=== PATIENT | male | born 1995 | race Caucasian/White ===

== ENCOUNTER 2017-07-08 18:44 | Emergency (ER) | payer OTHER ==
[2017-07-08 19:22] VITALS: BP 137/80; PULSE 73; RESP 18; TEMP 98
--- NOTE | 2017-07-08 19:30 | ED ---
General Adult HPI - General Chief complaint: Extremity Injury, Lower Stated complaint: Ankle Injury Time Seen by Provider: 07/08/17 19:17 Source: patient, family, RN notes reviewed Mode of arrival: ambulatory - History of Present Illness Initial comments: 21-year-old male presents emergency Department chief complaint of right ankle injury. Patient states that he is playing basketball today and he rolled his right ankle. pain along the lateral aspect. Patient is able to ambulate with difficulty. Patient denies fever chills cough cold Raynaud's. Patient denies any other injury from the incident. Patient was concerned due to his knee pain and swelling to be evaluated. Patient denies any recent fever, chills, shortness of breath, chest pain, back pain, abdominal pain, nausea vomiting, numbness or tingling, dysuria or hematuria, constipation or diarrhea, headaches or visual changes, or any other current symptoms. - Related Data Home Medications Medication Instructions Recorded Confirmed Lisdexamfetamine Dimesylate 50 mg PO QAM 07/08/17 07/08/17 [Vyvanse] Loratadine [Claritin] 10 mg PO DAILY 07/08/17 07/08/17 Montelukast Sodium [Singulair] 10 mg PO DAILY 07/08/17 07/08/17 Allergies Allergy/AdvReac Type Severity Reaction Status Date / Time No Known Allergies Allergy Verified 07/08/17 19:25 Review of Systems ROS Statement: Those systems with pertinent positive or pertinent negative responses have been documented in the HPI. ROS Other: All systems not noted in ROS Statement are negative. Past Medical History Past Medical History: No Reported History History of Any Multi-Drug Resistant Organisms: None Reported Past Surgical History: No Surgical Hx Reported Past Psychological History: No Psychological Hx Reported Smoking Status: Never smoker Past Alcohol Use History: None Reported Past Drug Use History: None Reported General Exam - General Exam Comments Initial Comments: General: The patient is awake and alert, in no distress, and does not appear acutely ill. Neck: The neck is supple, there is no tenderness. Cardiovascular: There is a regular rate and rhythm. No murmur, rub or gallop is appreciated. Respiratory: Lungs are clear to auscultation, respirations are non-labored, breath sounds are equal. No wheezes, stridor, rales, or rhonchi. Musculoskeletal: Patient tachycardia 2+ pulses. X-ray. Full range of motion of right knee and right ankle with no proximal tib-fib tenderness. Patient is going over the lateral malleolus and pain to the base of the lateral malleolus. Patient does have full range of motion. Patient is able to ambulate here in the emergency department. Neurological: CN II-XII intact, There are no obvious motor or sensory deficits. Coordination appears grossly intact. Speech is normal. Skin: Skin is warm and dry and no rashes or lesions are noted. Psychiatric: Normal mood and affect. Course Vital Signs 07/08/17 19:18 Temperature 98 F Pulse Rate 73 Respiratory 18 Rate Blood Pressure 137/80 O2 Sat by Pulse 100 Oximetry Procedures - Orthopedic Splinting/Casting Injury #1 Side: right Lower Extremity Injury Location: ankle Lower Extremity Immobilizer: Cam wrap Medical Decision Making - Medical Decision Making 21-year-old male presents for right ankle injury. This time patient appears her right ankle sprain. This time x-rays reviewed. We discussed care follow- up return parameters all patient's questions. He stated he understood any significant plan. All questions answered. He will be discharged. - Radiology Data Radiology results: image reviewed Interpreted by me: Interpreted by me: Right ankle xray: 3 view, no fracture, no dislocation, no bony lesions, no foreign bodies, no soft tissue damage. Waiting official radiology read. Disposition Clinical Impression: Right ankle sprain Disposition: HOME SELF-CARE Condition: Stable Instructions: Ankle Sprain (ED) Additional Instructions: Please use medication as discussed. Please follow up with family doctor if symptoms have not improved over the next two days. Please return to the emergency room if your symptoms increase or worsen or for any other concerns. Rest the area. Ice the area 20 min on 20 min off 4x a day. Compress the area with either the CAM bandage or wearing the splint. Elevate the area above the heart whenever possible. Referrals: Joe Strickland DO [Primary Care Provider] - 1-2 days Time of Disposition: 20:09
--- NOTE | 2017-07-08 20:21 | XR ---
PROCEDURE: XR ankle complete RT DATE AND TIME: 07/08/2017 7:33 PM REFERRING PHYSICIAN: Moon Hooker CLINICAL INDICATION: PHH, Pain TECHNIQUE: Department protocol. COMPARISON: None FINDINGS: There is prominent lateral soft tissue swelling. The mortise is intact. There is no fracture or malal ignment. IMPRESSION: NO ACUTE PROCESS.
== END 2017-07-08 20:16 | disposition home or self-care (01) ==
LOC: EC 18:44
DX: S93.401A Sprain of unspecified ligament of right ankle, initial encounter (principal); Z79.899 Other long term (current) drug therapy; X50.9XXA Other and unspecified overexertion or strenuous movements or postures, initial encounter; Y93.67 Activity, basketball
CPT/HCPCS: 99283